=== PATIENT | female | born 1985 | race Caucasian/White ===

== ENCOUNTER 2018-07-11 10:46 | Emergency (ER) | payer OTHER ==
[~2018-07-11] VITALS: Ht 160 cm; Wt 89.0 kg
[~2018-07-11 10:46] MED LIST: AZIT500T5 PO; DOXY100T10 PO; HYDR1TAB12 PO; IBUP-1222 PO; LABE200T6 PO; METH250T3 PO; PREN1TAB60 PO
[2018-07-11] MEDS ORDERED: ASPIRIN 81 MG TABLET CHEW PO ONE (11:30)
[2018-07-11] MEDS ORDERED: ONDANSETRON 2MG/ML, 2ML ONE (11:30)
[2018-07-11] MEDS ORDERED: ONDANSETRON 2MG/ML, 2ML IVPush ONE (11:30)
[2018-07-11] MEDS ORDERED: MORPHINE SULFATE 4 MG/ML, 1ML IVPush PRN (11:30)
[2018-07-11] MEDS ORDERED: MORPHINE SULFATE 4 MG/ML, 1ML ONE (11:31)
[2018-07-11] MEDS ORDERED: ASPIRIN 81 MG TABLET CHEW ONE (11:31)
[2018-07-11 11:51] LABS: BASOPHILS # (AUTO) 0.05 x10^3/uL (0-0.1); BASOPHILS % (AUTO) 0 % (0-1); EOSINOPHILS % (AUTO) 1 % (1-7); LYMPHOCYTES # (AUTO) 1.56 x10^3/uL (1-3.4); LYMPHOCYTES % (AUTO) 13 % (22-44); MD NO; MEAN CORPUSCULAR HEMOGLOBIN 30.2 pg (27.0-34.8); MEAN CORPUSCULAR VOLUME 88.7 fL (80-100); MEAN PLATELET VOLUME 8.4 fL (7.4-10.4); MONOCYTES # (AUTO) 0.68 x10^3/uL (0.2-0.8); MONOCYTES % (AUTO) 6 % (2-9); NEUTROPHILS # (AUTO) 9.97 x10^3/uL (1.8-6.8); NEUTROPHILS % (AUTO) 81 % (42-75); PLATELET COUNT 303 x10^3/uL (130-400); RED BLOOD COUNT 5.12 x10^6/uL (3.82-5.3); RED CELL DISTRIBUTION WIDTH 13.5 % (9.6-15.2)
[2018-07-11 12:03] LABS: ALANINE AMINOTRANSFERASE 30 U/L (12-78); ALBUMIN 3.9 g/dL (3.4-5.0); ANION GAP 8 mmol/L (5-15); CALCIUM 8.8 mg/dL (8.5-10.1); CHLORIDE 106 mmol/L (98-107); CREATININE 0.88 mg/dL (0.55-1.02)
[2018-07-11 12:07] LABS: ALKALINE PHOSPHATASE 100 U/L (45-117); BILIRUBIN,TOTAL 0.7 mg/dL (0.2-1.0); TOTAL PROTEIN 7.7 g/dL (6.4-8.2); TROPONIN I < 0.015 ng/mL (0.000-0.045)
[2018-07-11] MEDS ORDERED: OMNIPAQUE 350 MG/ML, 100ML BOTTLE ONE (13:16)
[2018-07-11 13:22] VITALS: BP 143/94
--- NOTE | 2018-07-11 13:23 | NUR ---
BREAK RN. PT IN NO ACUTE DISTRESS. STATES CHEST PAIN IMPROVED, BUT STILL DETECTABLE. AWAITING CTA RESULTS.
== END 2018-07-11 15:03 | disposition home or self-care (01) ==
LOC: ED 14:55
DX: R07.89 Other chest pain (principal); I10 Essential (primary) hypertension
CPT/HCPCS: 36415; 71275; 80053; 84484; 85025; 85379; 93005; 96374; 96375; 99284; J2405; Q9967

== ENCOUNTER 2020-01-28 10:40 | Outpatient (CLI) | payer OTHER ==
[~2020-01-28 10:40] MED LIST changes: +AZIT500T10 PO; -AZIT500T5 PO; -DOXY100T10 PO; +DOXY100T23 PO; -HYDR1TAB12 PO; +HYDR1TAB13 PO
[2020-01-28 12:57] LABS: MICROSCOPIC AUTO
== END 2020-01-28 13:15 | disposition home or self-care (01) ==
LOC: LDOP 10:40
PROVIDERS: ATTEND Obstetrics & Gynecology
DX: Z34.80 Encounter for supervision of other normal pregnancy, unspecified trimester (principal); Z3A.31 31 weeks gestation of pregnancy
CPT/HCPCS: 59025; 81001; 87086

== ENCOUNTER → 2020-03-08 | Outpatient (CLI) | payer OTHER ==
[~2020-03-08] MED LIST changes: +ASPI-515 PO; +albuterol inhaler HOMEINH
== END | disposition home or self-care (01) ==
LOC: STAR 09:18
PROVIDERS: ATTEND Anesthesiology
DX: Z01.812 Encounter for preprocedural laboratory examination (principal); U07.1 COVID-19
CPT/HCPCS: 36415; 87635

== ENCOUNTER 2020-03-11 07:55 | Inpatient (IN) | payer OTHER ==
[~2020-03-11] VITALS: Ht 160 cm; Wt 99.5 kg
[~2020-03-11 07:55] MED LIST changes: -ASPI-515 PO; -albuterol inhaler HOMEINH
[2020-03-11 22:30] VITALS: BP 134/75
[2020-03-11] MEDS ORDERED: ONDANSETRON 2MG/ML, 2ML IVPush PRN (22:30)
[2020-03-11] MEDS ORDERED: FENTANYL PF 100 MCG/2ML IVPush PRN (22:30)
[2020-03-11] MEDS ORDERED: SODIUM CITRATE/CITRIC ACID 30 ML UDC PO PRN (22:30)
[2020-03-11] MEDS ORDERED: MISOPROSTOL 25 MCG TABLET VG PRN (22:30)
[2020-03-11] MEDS ORDERED: FENTANYL PF 100 MCG/2ML IV PRN (22:30)
[2020-03-11] MEDS ORDERED: METOCLOPRAMIDE 5 MG/ML, 2ML IVPush PRN (22:30)
[2020-03-11] MEDS ORDERED: TERBUTALINE 1 MG/ML, 1ML SQ PRN (22:30)
[2020-03-11] MEDS ORDERED: OXYTOCIN 30U/ 0.9% NaCL 500ML 500 ML IV ONE (22:30)
[2020-03-11] MEDS ORDERED: TERBUTALINE 1 MG/ML, 1ML IVPush PRN (22:30)
[2020-03-11] MEDS ORDERED: OXYTOCIN 30U/ 0.9% NaCL 500ML 500 ML IV PRN (22:30)
[2020-03-11] MEDS ORDERED: MISOPROSTOL 25 MCG TABLET ONE (22:33)
[2020-03-11 22:44] LABS: BASOPHILS % (AUTO) 0 % (0-1); EOSINOPHILS % (AUTO) 0 % (1-7); LYMPHOCYTES % (AUTO) 24 % (22-44); MEAN CORPUSCULAR HEMOGLOBIN 28.1 pg (27.0-34.8); MEAN CORPUSCULAR HGB CONC 33.6 g/dL (32.4-35.8); MEAN PLATELET VOLUME 8.3 fL (7.4-10.4); MONOCYTES % (AUTO) 10 % (2-9); NEUTROPHILS % (AUTO) 66 % (42-75); PLATELET COUNT 166 x10^3/uL (130-400); RED BLOOD COUNT 3.81 x10^6/uL (3.82-5.3); RED CELL DISTRIBUTION WIDTH 14.5 % (9.6-15.2)
[2020-03-11 22:53] LABS: MD NO
[2020-03-11] MEDS: LACTATED RINGERS 1,000 ML IV SCH (22:55)
[2020-03-11 23:01] LABS: ALBUMIN 2.4 g/dL (3.4-5.0); ANION GAP 9 mmol/L (5-15); CALCIUM 7.8 mg/dL (8.5-10.1); CHLORIDE 113 mmol/L (98-107)
[2020-03-11 23:14] LABS: ALANINE AMINOTRANSFERASE 16 U/L (12-78); ALKALINE PHOSPHATASE 150 U/L (45-117); BILIRUBIN, DIRECT < 0.1 mg/dL (0.1-0.2); BILIRUBIN,TOTAL 0.3 mg/dL (0.2-1.0); CREATININE 0.65 mg/dL (0.55-1.02)
[2020-03-11 23:23] LABS: MICROSCOPIC INDICATED
[2020-03-11 23:30] LABS: CREATININE,URINE RANDOM 58.2 mg/dL
[2020-03-11] MEDS ORDERED: CALCIUM CARBONATE 500 MG TAB.CHEW PO PRN (23:30)
[2020-03-11] MEDS ORDERED: D5%-LACTATED RINGERS 1,000 ML IV SCH (23:30)
[2020-03-11] MEDS ORDERED: ALUMINUM/MAG/SIMETHICONE 30 ML UDC PO PRN (23:30)
[2020-03-11] MEDS ORDERED: CALCIUM CARBONATE 500 MG TAB.CHEW ONE ×2 (23:32→23:33)
[2020-03-11] MEDS ORDERED: NEWBORN KIT ONE (23:56)
[2020-03-11] MEDS ORDERED: OXYTOCIN 30U/ 0.9% NaCL 500ML 500 ML ONE (23:56)
[2020-03-12] MEDS ORDERED: albuterol inhaler HOMEINH (01:41)
[2020-03-12] MEDS ORDERED: ASPI-515 PO (01:41)
[2020-03-12 05:19] VITALS: BP 144/86
[2020-03-12] MEDS ORDERED: LABETALOL 100 MG TABLET ONE (05:47)
[2020-03-12] MEDS: LABETALOL 100 MG TABLET PO SCH ×3 (05:52→19:39)
[2020-03-12] MEDS ORDERED: BUPIVACAINE 0.25% ONE (07:35)
[2020-03-12] MEDS ORDERED: FENTANYL/BUPIV./NS/PF 250 ML EPIDCONT ONE (07:36)
[2020-03-12] MEDS: LACTATED RINGERS 1,000 ML IV SCH ×2 (07:41→08:22)
[2020-03-12] MEDS ORDERED: FENTANYL/BUPIV./NS/PF 250 ML EPIDCONT SCH (08:30)
[2020-03-12] MEDS ORDERED: LACTATED RINGERS 1,000 ML IVBOLUS PRN (08:30)
[2020-03-12] MEDS ORDERED: EPHEDRINE 50 MG/ML, 1ML IVPush PRN (08:30)
[2020-03-12] MEDS ORDERED: LACTATED RINGERS 1,000 ML IV SCH (08:30)
[2020-03-12] MEDS ORDERED: OXYcodone IR 5MG TABLET PO PRN (11:30)
[2020-03-12] MEDS ORDERED: MISOPROSTOL 200 MCG TABLET PR PRN (11:30)
[2020-03-12] MEDS ORDERED: SIMETHICONE 80 MG CHEW TAB PO PRN (11:30)
[2020-03-12] MEDS ORDERED: ACETAMINOPHEN 325 MG TABLET PO PRN (11:30)
[2020-03-12] MEDS ORDERED: ONDANSETRON 2MG/ML, 2ML IV PRN (11:30)
[2020-03-12] MEDS ORDERED: OXYTOCIN 30U/ 0.9% NaCL 500ML 500 ML ONE (12:06)
[2020-03-12] MEDS ORDERED: IBUPROFEN 600 MG TABLET ONE (12:06)
[2020-03-12] MEDS: IBUPROFEN 600 MG TABLET PO PRN ×2 (12:26→18:19)
[2020-03-12] MEDS: OXYTOCIN 30U/ 0.9% NaCL 500ML 500 ML IV SCH ×2 (12:27→21:30)
[2020-03-12 14:15] VITALS: BP 134/80
[2020-03-12] MEDS: OXYcodone/APAP 5/325MG TABLET PO PRN ×2 (15:47→20:09)
[2020-03-12 18:30] VITALS: BP 137/84
[2020-03-12 18:42] LABS: BASOPHILS % (AUTO) 0 % (0-1); EOSINOPHILS % (AUTO) 0 % (1-7); LYMPHOCYTES % (AUTO) 24 % (22-44); MEAN CORPUSCULAR HEMOGLOBIN 27.9 pg (27.0-34.8); MEAN CORPUSCULAR HGB CONC 32.4 g/dL (32.4-35.8); MEAN PLATELET VOLUME 8.5 fL (7.4-10.4); MONOCYTES % (AUTO) 7 % (2-9); NEUTROPHILS % (AUTO) 69 % (42-75); PLATELET COUNT 179 x10^3/uL (130-400); RED BLOOD COUNT 4.27 x10^6/uL (3.82-5.3); RED CELL DISTRIBUTION WIDTH 15.1 % (9.6-15.2)
[2020-03-12 18:45] LABS: MD NO
[2020-03-12] MEDS: DOCUSATE 100 MG CAPSULE PO PRN (20:09)
[2020-03-12 20:27] VITALS: BP_SYST 151; BP_SYST 164; BP_DIAS 100; BP_DIAS 88
[2020-03-12 21:02] VITALS: BP 144/89
[2020-03-13] MEDS: OXYcodone/APAP 5/325MG TABLET PO PRN ×2 (00:07→07:40)
[2020-03-13 00:10] VITALS: BP_SYST 138; BP_SYST 155; BP_DIAS 87; BP_DIAS 89
[2020-03-13 04:10] VITALS: BP_SYST 149; BP_SYST 160; BP_DIAS 90; BP_DIAS 92
[2020-03-13] MEDS: OXYTOCIN 30U/ 0.9% NaCL 500ML 500 ML IV SCH (07:30)
[2020-03-13] MEDS: LABETALOL 100 MG TABLET PO SCH (07:40)
[2020-03-13] MEDS: DOCUSATE 100 MG CAPSULE PO PRN (07:40)
[2020-03-13 07:55] VITALS: BP 152/95
[2020-03-13] MEDS ORDERED: PRENATAL VIT/IRON/FA 1 EACH TABLET PO SCH (09:00)
[2020-03-13] MEDS ORDERED: IBUP-1222 PO (09:11)
== END 2020-03-13 12:00 | disposition home or self-care (01) | DRG 807 ==
LOC: LDIP 22:02 → 2NW 03-12 13:58
PROVIDERS: ADMIT Obstetrics & Gynecology; ATTEND Obstetrics & Gynecology
PROC: 10E0XZZ Delivery of Products of Conception, External Approach (ICD-10-PCS; principal; 2020-03-12)
PROC: 0HQ9XZZ Repair Perineum Skin, External Approach (ICD-10-PCS; 2020-03-12)
PROC: 3E0R3BZ Introduction of Anesthetic Agent into Spinal Canal, Percutaneous Approach (ICD-10-PCS; 2020-03-12)
PROC: 00HU33Z Insertion of Infusion Device into Spinal Canal, Percutaneous Approach (ICD-10-PCS; 2020-03-12)
DX: O70.0 First degree perineal laceration during delivery (principal); Z37.0 Single live birth; Z3A.39 39 weeks gestation of pregnancy
CPT/HCPCS: 36415; 80053; 81001; 82248; 82570; 84156; 84550; 85025; 86592; 86850; 86900; G0378; J2590; J7120

== ENCOUNTER 2020-03-14 16:39 | Emergency (ER) | payer OTHER ==
[~2020-03-14 16:39] MED LIST changes: +ASPI-515 PO; +albuterol inhaler HOMEINH
--- NOTE | 2020-03-14 16:48 | NUR ---
CALL PLACED TO L&D, PATIENT WILL BE TRANSPORTED UPSTAIRS FOR CARE
== END 2020-03-14 16:56 ==
LOC: ED 16:50
DX: R06.02 Shortness of breath (principal); R73.9 Hyperglycemia, unspecified; Z53.21 Procedure and treatment not carried out due to patient leaving prior to being seen by health care provider
CPT/HCPCS: 93005

== ENCOUNTER 2020-03-14 16:57 | Inpatient (IN) | payer OTHER ==
[~2020-03-14] VITALS: Ht 160 cm; Wt 94.0 kg
[2020-03-14] MEDS ORDERED: MAGNESIUM SULF. PMX 20GM/500ML 500 ML IV ONE (17:17)
[2020-03-14] MEDS ORDERED: LABETALOL 5MG/ML, 20ML ONE (17:25)
[2020-03-14] MEDS ORDERED: LACTATED RINGERS 1,000 ML IV PRN (17:30)
[2020-03-14] MEDS ORDERED: MAGNESIUM SULFATE PMX 4GM/100M 100 ML IVPB ONE (17:30)
[2020-03-14] MEDS ORDERED: LABETALOL 5MG/ML, 20ML IVPush ONE ×2 (17:30→19:00)
[2020-03-14] MEDS ORDERED: PLEASE ENTER HEIGHT AND WEIGHT MC SCH (18:00)
[2020-03-14 18:07] LABS: BASOPHILS % (AUTO) 0 % (0-1); EOSINOPHILS % (AUTO) 2 % (1-7); LYMPHOCYTES % (AUTO) 26 % (22-44); MEAN CORPUSCULAR HEMOGLOBIN 28.1 pg (27.0-34.8); MEAN CORPUSCULAR HGB CONC 33.1 g/dL (32.4-35.8); MEAN PLATELET VOLUME 7.8 fL (7.4-10.4); MONOCYTES % (AUTO) 8 % (2-9); NEUTROPHILS % (AUTO) 64 % (42-75); PLATELET COUNT 214 x10^3/uL (130-400); RED BLOOD COUNT 4.03 x10^6/uL (3.82-5.3)
[2020-03-14 18:09] LABS: MD NO
[2020-03-14] MEDS: MAGNESIUM SULF. PMX 20GM/500ML 500 ML IV SCH (18:12)
[2020-03-14 18:19] LABS: ALBUMIN 2.3 g/dL (3.4-5.0); ANION GAP 8 mmol/L (5-15); CALCIUM 8.4 mg/dL (8.5-10.1); CHLORIDE 111 mmol/L (98-107)
[2020-03-14 18:22] LABS: ALANINE AMINOTRANSFERASE 24 U/L (12-78); ALKALINE PHOSPHATASE 149 U/L (45-117); BILIRUBIN,TOTAL 0.3 mg/dL (0.2-1.0); CREATININE 0.71 mg/dL (0.55-1.02); TOTAL PROTEIN 6.1 g/dL (6.4-8.2)
[2020-03-14] MEDS ORDERED: LABETALOL 200 MG TABLET PO SCH (19:00)
[2020-03-14] MEDS ORDERED: LABETALOL 200 MG TABLET ONE (19:56)
[2020-03-14] MEDS ORDERED: POTASSIUM CHLORIDE 20 MEQ TAB.ER.PRT ONE (19:59)
[2020-03-14] MEDS ORDERED: POTASSIUM CHLORIDE 20 MEQ TAB.ER.PRT PO ONE (20:00)
[2020-03-14] MEDS: LABETALOL 200 MG TABLET PO SCH (20:02)
[2020-03-14 20:21] VITALS: BP 136/68
[2020-03-15] MEDS ORDERED: MAGNESIUM SULF. PMX 20GM/500ML 500 ML IV ONE ×2 (00:05→08:01)
[2020-03-15] MEDS: MAGNESIUM SULF. PMX 20GM/500ML 500 ML IV SCH ×2 (00:07→08:04)
[2020-03-15] MEDS ORDERED: ACETAMINOPHEN 500 MG TABLET ONE ×3 (01:32→23:02)
[2020-03-15] MEDS ORDERED: ACETAMINOPHEN 500 MG TABLET PO ONE (02:00)
[2020-03-15] MEDS: LACTATED RINGERS 1,000 ML IV SCH ×2 (05:00→10:04)
[2020-03-15 06:24] LABS: CHLORIDE 108 mmol/L (98-107)
[2020-03-15 06:27] LABS: BASOPHILS % (AUTO) 0 % (0-1); EOSINOPHILS % (AUTO) 2 % (1-7); LYMPHOCYTES % (AUTO) 24 % (22-44); MEAN CORPUSCULAR HEMOGLOBIN 27.7 pg (27.0-34.8); MEAN CORPUSCULAR HGB CONC 32.8 g/dL (32.4-35.8); MONOCYTES % (AUTO) 8 % (2-9); NEUTROPHILS % (AUTO) 66 % (42-75); PLATELET COUNT 232 x10^3/uL (130-400); RED BLOOD COUNT 4.23 x10^6/uL (3.82-5.3); RED CELL DISTRIBUTION WIDTH 14.9 % (9.6-15.2)
[2020-03-15 06:30] LABS: ALANINE AMINOTRANSFERASE 28 U/L (12-78); ALBUMIN 2.4 g/dL (3.4-5.0); ALKALINE PHOSPHATASE 149 U/L (45-117); ANION GAP 5 mmol/L (5-15); BILIRUBIN,TOTAL 0.3 mg/dL (0.2-1.0); CALCIUM 7.2 mg/dL (8.5-10.1); CREATININE 0.68 mg/dL (0.55-1.02); MD NO; TOTAL PROTEIN 6.3 g/dL (6.4-8.2)
[2020-03-15] MEDS ORDERED: LABETALOL 200 MG TABLET ONE (07:46)
[2020-03-15] MEDS: LABETALOL 200 MG TABLET PO SCH (07:57)
[2020-03-15] MEDS ORDERED: POTASSIUM CHLORIDE 20 MEQ TAB.ER.PRT ONE (09:58)
[2020-03-15] MEDS ORDERED: POTASSIUM CHLORIDE 20 MEQ TAB.ER.PRT PO ONE (10:00)
[2020-03-15] MEDS: ACETAMINOPHEN 500 MG TABLET PO PRN ×2 (16:07→23:02)
[2020-03-15 19:31] VITALS: BP 142/86
[2020-03-15] MEDS ORDERED: LABETALOL 300 MG TABLET PO SCH (21:00)
[2020-03-15 22:54] VITALS: BP 138/84
[2020-03-15] MEDS ORDERED: ACETAMINOPHEN 325 MG TABLET ONE (22:58)
[2020-03-16 05:00] VITALS: BP 169/94
[2020-03-16] MEDS ORDERED: LABETALOL 200 MG TABLET ONE ×2 (05:09→16:56)
[2020-03-16] MEDS ORDERED: LABETALOL 200 MG TABLET PO SCH ×2 (08:00)
[2020-03-16 08:52] VITALS: BP 129/86
[2020-03-16] MEDS: niFEDipine ER 30 MG TABLET.ER PO SCH (12:23)
[2020-03-16] MEDS: LABETALOL 200 MG TABLET PO SCH (17:01)
[2020-03-17] MEDS: LABETALOL 200 MG TABLET PO SCH ×2 (05:00→08:55)
[2020-03-17] MEDS ORDERED: LABETALOL 200 MG TABLET ONE (08:52)
[2020-03-17] MEDS ORDERED: LABETALOL 100 MG TABLET ONE (08:52)
[2020-03-17] MEDS ORDERED: NIFE30TA2 PO (12:14)
[2020-03-17] MEDS ORDERED: LABE200T6 PO (12:16)
[2020-03-17] MEDS ORDERED: niFEDipine ER 30 MG TABLET.ER ONE (12:35)
[2020-03-17] MEDS: niFEDipine ER 30 MG TABLET.ER PO SCH (12:39)
== END 2020-03-17 12:53 | disposition home or self-care (01) | DRG 776 ==
LOC: LDOP 16:57 → LDIP 17:43
PROVIDERS: ADMIT Family Medicine; ATTEND Obstetrics & Gynecology
DX: O14.15 Severe pre-eclampsia, complicating the puerperium (principal); U07.1 COVID-19; O98.53 Other viral diseases complicating the puerperium; Z82.49 Family history of ischemic heart disease and other diseases of the circulatory system; Z88.0 Allergy status to penicillin; O10.93 Unspecified pre-existing hypertension complicating the puerperium; O99.285 Endocrine, nutritional and metabolic diseases complicating the puerperium; E87.6 Hypokalemia
CPT/HCPCS: 36415; 80053; 83735; 84550; 85025; G0378; J3475; J7120